=== PATIENT | female | born 1960 | race American Indian/Alaskan Native ===

== ENCOUNTER 2017-07-09 14:09 | Emergency (ER) | payer MEDICAID, OTHER ==
[2017-07-09 14:10] VITALS: BMI 38.4
[2017-07-09 14:22] VITALS: PULSE 69
[2017-07-09] MEDS ORDERED: Sodium Chloride 0.9% 1,000 ML IV ONE (15:02)
[2017-07-09 15:27] LABS: BASO # 0.1 K/uL (0.0-0.2); EOS # 0.3 K/uL (0.0-0.7); HEMOGLOBIN 11.9 g/dL (11.0-16.0); LYMPH % 53.4 % (20.0-40.0); MEAN CELL VOLUME 80.3 fL (81.0-99.0); MEAN CORPUSCULAR HEMOGLOBIN 27.1 pg (27.0-31.0); MEAN CORPUSCULAR HGB CONC 33.8 g/dL (33.0-37.0); MEAN PLATELET VOLUME 10.1 fL (7.2-11.7); MONO # 0.4 K/uL (0.0-0.8); NEUT # 1.9 K/uL (1.8-7.0); NEUT % 33.6 % (50.0-75.0); NRBC % 0.1 % (0.0-2.0); RBC 4.4 Mil/uL (3.80-5.20); WHITE BLOOD COUNT 5.6 K/uL (4.8-10.8)
[2017-07-09 15:33] LABS: ALB/GLOB RATIO 1.1 (1.0-2.1); ALBUMIN 4.2 g/dL (3.5-5.0); CALCIUM 8.9 mg/dl (8.6-10.4); GFR AFRICAN-AMERICAN > 60; GFR NON-AFRICAN AMERICAN > 60; LIPASE 171 U/L (23-300)
[2017-07-09 15:44] LABS: ALT/SGPT 31 U/L (9-52); AST/SGOT 34 U/L (14-36); BLOOD UREA NITROGEN 11 mg/dL (7-17)
[2017-07-09 16:58] VITALS: BP 134/79; RESP 18; TEMP 98.6; O2SAT 100
--- NOTE | 2017-07-09 18:36 | C.PDOC ---
History Of Present Illness 56 year old female with history of gastritis presents to the ED for evaluation of epigastric and LUQ abdominal pain which has increasing for the past 2 weeks. Patient states pain increases with PO intake and reports mild nausea. He denies fever, chills, vomiting, chest pain, shortness of breath, bloody stool/urine. Chief Complaint (Nursing): Abdominal Pain History Per: Patient History/Exam Limitations: no limitations Onset/Duration Of Symptoms: Other (2 weeks ) Current Symptoms Are (Timing): Still Present Location Of Pain/Discomfort: Epigastric, LUQ Associated Symptoms: Nausea. denies: Fever, Chills, Vomiting, Urinary Symptoms Additional History Per: Patient Past Medical History Reviewed: Historical Data, Nursing Documentation, Vital Signs Vital Signs: Last Vital Signs Temp 98.6 F 07/09/17 16:57 Pulse 69 07/09/17 16:57 Resp 18 07/09/17 16:57 BP 134/79 07/09/17 16:57 Pulse Ox 100 07/09/17 18:38 - Medical History PMH: Asthma, CHF, CVA, Diabetes, HTN, Hypercholesterolemia, TIA Denies: Chronic Kidney Disease Surgical History: Coronary Stent - [facility] Procedures CORONAR ARTERIOGR-2 CATH (05/09/14) LEFT HEART CARDIAC CATH (05/09/14) LT HEART ANGIOCARDIOGRAM (05/09/14) Family History: States: Unknown Family Hx - Social History Hx Tobacco Use: No Hx Alcohol Use: No Hx Substance Use: No - Immunization History Hx Tetanus Toxoid Vaccination: No Hx Influenza Vaccination: No Hx Pneumococcal Vaccination: No Review Of Systems Constitutional: Negative for: Fever, Chills Respiratory: Negative for: Cough, Shortness of Breath Gastrointestinal: Positive for: Nausea, Abdominal Pain (epigastric and LUQ ). Negative for: Vomiting, Hematochezia Physical Exam - Physical Exam Appears: Non-toxic, No Acute Distress Skin: Normal Color, Warm, Dry Head: Atraumatic, Normacephalic Eye(s): bilateral: Normal Inspection Oral Mucosa: Moist Neck: Supple Chest: Symmetrical, No Deformity, No Tenderness Cardiovascular: Rhythm Regular, No Murmur Respiratory: Normal Breath Sounds, No Rales, No Rhonchi, No Wheezing Gastrointestinal/Abdominal: Soft, No Tenderness, No Guarding, No Rebound Extremity: Normal ROM, Capillary Refill (less than 2 seconds ) Neurological/Psych: Oriented x3, Normal Speech, Normal Cognition ED Course And Treatment - Laboratory Results Result Diagrams: 07/09/17 15:15 07/09/17 15:15 O2 Sat by Pulse Oximetry: 100 (on RA) Pulse Ox Interpretation: Normal Medical Decision Making Medical Decision Making: Progress: Bloodwork ordered and reviewed. Pepcid IVP and IV fluids administered. Disposition - Disposition Referrals: [facility], [Non-Staff] - Disposition: HOME/ ROUTINE Disposition Time: 15:45 Condition: GOOD Additional Instructions: Thank you for letting us take care of you today. The emergency medical care you received today was directed at your acute symptoms. If you were prescribed any medication, please fill it and take as directed. It may take several days for your symptoms to resolve. Return to the Emergency Department if your symptoms worsen, do not improve, or if you have any other problems. Please contact your doctor or call one of the physicians/clinics you have been referred to that are listed on the Patient Visit Information form that is included in your discharge packet. Bring any paperwork you were given at discharge with you along with any medications you are taking to your follow up visit. Our treatment cannot replace ongoing medical care by a primary care provider (PCP) outside of the emergency department. Thank you for allowing the [facility] team to be part of your care today. Please follow up with your doctor in 2-3 days for re-evaluation and further management. You may need a repeat endoscopy. Prescriptions: Ranitidine HCl [Zantac] 150 mg PO BID #20 tablet Instructions: Gastritis (ED) Forms: [employer] (Mohawk) - Clinical Impression Clinical Impression: Abdominal pain - Scribe Statement The provider has reviewed the documentation as recorded by the Scribe (Gabi Balderrama) Provider Attestation: All medical record entries made by the Scribe were at my direction and personally dictated by me. I have reviewed the chart and agree that the record accurately reflects my personal performance of the history, physical exam, medical decision making, and the department course for this patient. I have also personally directed, reviewed, and agree with the discharge instructions and disposition.
== END 2017-07-09 17:36 | disposition home or self-care (01) ==
LOC: C.ER 14:09
DX: R10.13 Epigastric pain (principal)

== ENCOUNTER 2018-02-28 10:16 | Emergency (ER) | payer MEDICAID, MEDICARE ==
[2018-02-28 10:16] VITALS: BMI 38.4
[2018-02-28] MEDS ORDERED: Sodium Chloride 0.9% 1,000 ML IV ONE (10:55)
--- NOTE | 2018-02-28 10:59 | C.PDOC ---
History Of Present Illness 57yo female, comes to ER reporting left upper quadrant abdominal pain x 1 week. She states the pain has been present "for a while" but has worsened over the week, prompting ER visit. She denies any follow up with a GI specialist. Patient denies any fever, chills, vomiting, diarrhea. No other complaints. Time Seen by Provider: 02/28/18 10:40 Chief Complaint (Nursing): Abdominal Pain History Per: Patient History/Exam Limitations: no limitations Onset/Duration Of Symptoms: Persistent Current Symptoms Are (Timing): Still Present Location Of Pain/Discomfort: LUQ Associated Symptoms: Fever. denies: Chills, Nausea, Vomiting, Diarrhea Additional History Per: Patient Past Medical History Reviewed: Historical Data, Nursing Documentation, Vital Signs Vital Signs: Last Vital Signs Temp 98.9 F 02/28/18 10:45 Pulse 67 02/28/18 10:45 Resp 18 02/28/18 10:45 BP 125/78 02/28/18 10:45 Pulse Ox 97 02/28/18 10:45 - Medical History PMH: Asthma, CHF, CVA, Diabetes, HTN, Hypercholesterolemia, TIA Denies: Chronic Kidney Disease Surgical History: Coronary Stent - [facility] Procedures CORONAR ARTERIOGR-2 CATH (05/09/14) LEFT HEART CARDIAC CATH (05/09/14) LT HEART ANGIOCARDIOGRAM (05/09/14) Family History: States: No Known Family Hx - Social History Hx Tobacco Use: No Hx Alcohol Use: No Hx Substance Use: No - Immunization History Hx Tetanus Toxoid Vaccination: No Hx Influenza Vaccination: No Hx Pneumococcal Vaccination: No Review Of Systems Except As Marked, All Systems Reviewed And Found Negative. Constitutional: Positive for: Fever (subjective) Gastrointestinal: Positive for: Abdominal Pain. Negative for: Nausea, Vomiting, Diarrhea Physical Exam - Physical Exam Appears: Non-toxic, No Acute Distress Skin: Normal Color Head: Atraumatic, Normacephalic Eye(s): bilateral: Normal Inspection Neck: Normal ROM, Supple Chest: Symmetrical Cardiovascular: Rhythm Regular Respiratory: Normal Breath Sounds Gastrointestinal/Abdominal: Soft, Tenderness (left upper quadrant), No Mass, No Guarding, No Rebound Back: Normal Inspection, No CVA Tenderness Extremity: Normal ROM, No Pedal Edema Neurological/Psych: Oriented x3 ED Course And Treatment - Laboratory Results Result Diagrams: 02/28/18 11:38 02/28/18 11:38 O2 Sat by Pulse Oximetry: 97 (RA) Pulse Ox Interpretation: Normal Progress Note: Labs ordered. Patient given Zofran, Protonix and IV Fluids Medical Decision Making Medical Decision Making: ro gastrits pancreatits pud. labs imaging pendign noted minimal elevated lipase < 3x. ct shows probable cyst vs malgnanncy. case discussed with dr rhodes. agrees with further outpt bennett as pt has had this pain for months. pt notified of results. agrees to outpt fu. Disposition - Disposition Referrals: [facility] [Outside] [facility] [Outside] Dylan Gilbert MD [Staff Provider] - Disposition: HOME/ ROUTINE Disposition Time: 02:00 Condition: STABLE Additional Instructions: follow up with GI and your doctor as an outpatient. you will need further diagnostic testing as an outpatient. return to er with worsening symptoms or concerns. Instructions: Pancreatitis, Acute Abdomen (Belly Pain) Forms: [employer] (Bur[place]ian) - Clinical Impression Clinical Impression: Abdominal pain, Pancreatic lesion - Scribe Statement The provider has reviewed the documentation as recorded by the Reza Whitten Provider Attestation: All medical record entries made by the Reza were at my direction and personally dictated by me. I have reviewed the chart and agree that the record accurately reflects my personal performance of the history, physical exam, medical decision making, and the department course for this patient. I have also personally directed, reviewed, and agree with the discharge instructions and disposition.
[2018-02-28] MEDS ORDERED: Sodium Chloride 0.9% 250 ML IV ONE (11:29)
[2018-02-28 11:48] LABS: BASO # 0.1 K/uL (0.0-0.2); BASO % 0.9 % (0.0-2.0); EOS # 0.2 K/uL (0.0-0.7); EOS % 4.2 % (0.0-4.0); HEMOGLOBIN 12.2 g/dL (11.0-16.0); LYMPH # 2.7 K/uL (1.0-4.3); LYMPH % 45.4 % (20.0-40.0); MEAN CORPUSCULAR HEMOGLOBIN 26.4 pg (27.0-31.0); MEAN CORPUSCULAR HGB CONC 33.8 g/dL (33.0-37.0); MEAN PLATELET VOLUME 9.9 fL (7.2-11.7); MONO # 0.4 K/uL (0.0-0.8); MONO % 6.2 % (0.0-10.0); NEUT # 2.5 K/uL (1.8-7.0); NEUT % 43.3 % (50.0-75.0); NRBC % 0.1 % (0.0-2.0); RBC 4.64 Mil/uL (3.80-5.20); WHITE BLOOD COUNT 5.9 K/uL (4.8-10.8)
[2018-02-28 11:54] LABS: INR 1.1; PROTHROMBIN TIME 12.1 SECONDS (9.7-12.2)
[2018-02-28 12:01] LABS: ALB/GLOB RATIO 1.3 (1.0-2.1); ALBUMIN 4.2 g/dL (3.5-5.0); ALT/SGPT 34 U/L (9-52); AST/SGOT 23 U/L (14-36); BILIRUBIN,DIRECT 0.3 mg/dL (0.0-0.4); BLOOD UREA NITROGEN 13 mg/dL (7-17); CALCIUM 9.4 mg/dl (8.6-10.4); GFR NON-AFRICAN AMERICAN > 60; LIPASE 412 U/L (23-300)
[2018-02-28 12:05] LABS: SQUAMOUS EPITHIAL 1 /hpf (0-5); URINE BILIRUBIN NEGATIVE (NEGATIVE); URINE BLOOD NEGATIVE (NEGATIVE); URINE CLARITY Clear (Clear); URINE COLOR Yellow (YELLOW); URINE GLUCOSE (UA) 3+ mg/dL (Normal); URINE LEUKOCYTE ESTERASE NEG Leu/uL (Negative); URINE PROTEIN NEGATIVE (NEGATIVE); URINE UROBILINOGEN NORMAL mg/dL (0.2-1.0)
[2018-02-28] MEDS ORDERED: Iodixanol 320 mg/ml 150 ml Bottle IV ONE (12:14)
[2018-02-28] MEDS ORDERED: Potassium Chloride 20 mEq ER Tab PO STA (12:21)
[2018-02-28] MEDS ORDERED: Potassium Chloride 20 mEq ER Tab PO ONE (13:11)
[2018-02-28 13:12] VITALS: RESP 17
--- NOTE | 2018-02-28 13:54 | CT ---
Date of service: 02/28/2018 PROCEDURE: CT Abdomen and Pelvis with contrast HISTORY: upper abd pain COMPARISON: None. TECHNIQUE: Contrast dose: Radiation dose: Total exam DLP = 1090.34 mGy-cm. This CT exam was performed using one or more of the following dose reduction techniques: Automated exposure control, adjustment of the mA and/or kV according to patient size, and/or use of iterative reconstruction technique. FINDINGS: LOWER THORAX: The minor passive/dependent type atelectasis both posterior lower lung mcclain. No evidence of effusion or basilar pneumothorax. Heart size is within range of normal. No significant pericardial effusion. There is a small hiatal hernia with wall thickening of the distal esophagus likely due to protrusion of gastric mucosa. Possibility of esophagitis versus other intrinsic/invasive wall lesion not excluded. LIVER: Liver exhibits relatively normal size measuring nearly 17 cm in CC dimension.. Mild fatty hepatic infiltration. No evidence of obvious hepatic mass collection or calcification. Portal and splenic veins opacified. GALLBLADDER AND BILE DUCTS: The the gallbladder is physiologically distended. No evidence of intraluminal gallbladder calculi. PANCREAS: There is a small approximately 12 mm rounded low-attenuation lesion within the pancreatic tail that exhibits Hounsfield units in the mid teens consistent with a cystic type lesion. While this could represent a benign lesion such as a pseudocyst or benign versus malignant cystic neoplasm including IPMN. Follow-up GI consultation recommended. SPLEEN: Spleen exhibits normal size and attenuation pattern. The the the ADRENALS: Unremarkable. No mass. KIDNEYS AND URETERS: Kidneys demonstrate symmetric nephrograms. No evidence of nephrolithiasis or hydronephrosis. VASCULATURE: Unremarkable. No aortic aneurysm. BOWEL: Evaluation of the bowel is somewhat limited due to the lack of oral contrast material. Stomach is incompletely distended which in part accounts for thick-walled appearance. Visualized loops of small bowel exhibit normal contour and caliber. No evidence of acute mechanical small bowel obstruction. Stool and air seen throughout the large bowel. No definitive mural wall thickening APPENDIX: . Normal appendix PERITONEUM: Unremarkable. No free fluid. No free air. Small fat containing umbilical hernia. LYMPH NODES: Few small nonspecific retroperitoneal lymph nodes are present.. BLADDER: Urinary bladder incompletely distended which may in part account for thick-walled appearance. Correlation with urinalysis recommended to exclude cystitis. REPRODUCTIVE: Hysterectomy. BONES: Mild multilevel degenerative spondylosis of the lower thoracic and lumbar spine most significantly affecting the L5-S1 level. There is also localized mild endplate deformity superior T12 endplate. OTHER FINDINGS: None. IMPRESSION: Fatty hepatic infiltration. There is a small 12 mm rounded cystic lesion in the tail the pancreas that is of uncertain etiology however differential diagnosis would include pseudocyst or benign versus malignant cystic neoplasm including IPMN. small hiatal hernia with wall thickening of the distal esophagus likely due to protrusion of gastric mucosa. Possibility of esophagitis versus other intrinsic/invasive wall lesion not excluded. GI consultation recommended. Few small nonspecific retroperitoneal lymph nodes are present. See above discussion for additional details, findings and recommendations.
[2018-02-28 14:23] VITALS: BP 153/77; PULSE 61; TEMP 98.8
[2018-02-28 14:52] VITALS: O2SAT 97
== END 2018-02-28 14:23 | disposition home or self-care (01) ==
LOC: C.ER 10:16
DX: R10.12 Left upper quadrant pain (principal); K86.9 Disease of pancreas, unspecified; E11.9 Type 2 diabetes mellitus without complications; E78.00 Pure hypercholesterolemia, unspecified; I50.9 Heart failure, unspecified; I10 Essential (primary) hypertension; Z86.73 Personal history of transient ischemic attack (TIA), and cerebral infarction without residual deficits
CPT/HCPCS: 74177; 80053; 81001; 82248; 83690; 85025; 85610; 85730; 96361; 96374; 96375; 99285; C9113; J2405; J7030; Q9967